=== PATIENT | female | born 1990 | race Hispanic/Latino ===

== ENCOUNTER 2018-08-04 09:29 | Emergency (ER) | payer BC, OTHER ==
[2018-08-04 09:37] VITALS: BMI 39.8
--- NOTE | 2018-08-04 10:12 | ED PDOC ---
History of Present Illness History of Present Illness: 27 y/o female with no PMHx presents to the ED complaining of flu-like symptoms since yesterday. Associated with generalized bodyaches, fever, chills, nausea, vomiting, and headaches. Patient also reports developing a dry cough today. Additionally, she complains of mild dysuria and low back pain. She denies any sore throat, ear pain, sputum production, SOB, wheezing, chest tightness, dizziness, or other complaints. Patient denies known sick contacts, but works as a respiratory therapist. States she received her flu shot last month. HPI: Influenza Time Seen by Provider: 08/04/18 09:42 Chief Complaint: Flu-like Symptoms Chief Complaint (Provider): Flu-like Symptoms, Dysuria History Per: Patient Exam Limitations: no limitations Onset/Duration Of Symptoms: Days (x2) Symptoms include: fever, headache, bodyaches, cough, vomiting Sick Contacts (Context): None Hx Influenza Vaccination: Yes Past Medical History Reviewed: Historical Data, Nursing Documentation, Vital Signs Vital Signs: Last Vital Signs Temp 101.1 F H 08/04/18 09:35 Pulse 104 H 08/04/18 09:35 Resp 20 08/04/18 09:35 BP 116/71 08/04/18 09:35 Pulse Ox 97 08/04/18 09:35 - Medical History PMH: No Chronic Diseases - Surgical History Surgical History: Back Surgery (due to scoliosis), Cholecystectomy, Tonsillec callie - Family History Family History: States: No Known Family Hx - Social History Alcohol: Social Drugs: Denies - Home Medications Home Medications: Ambulatory Orders Medication Instructions Recorded Acetaminophen/Oxycodone Hydr 1 tab PO Q6H PRN #14 tab 03/27/15 [Percocet 10/325 mg Tab] Naproxen [Naprosyn] 500 mg PO BID PRN #20 tablet 08/04/18 - Allergies Allergies/Adverse Reactions: Allergies Allergy/AdvReac Type Severity Reaction Status Date / Time Penicillins Allergy RASH Verified 08/04/18 10:00 Review of Systems ROS Statement: Except As Marked, All Systems Reviewed And Found Negative Constitutional: Positive for: Fever, Chills, Other (Bodyaches) ENT: Negative for: Ear Pain, Throat Pain Cardiovascular: Negative for: Chest Pain, Palpitations, Light Headedness Respiratory: Positive for: Cough. Negative for: Shortness of Breath, Sputum, Wheezing Gastrointestinal: Positive for: Nausea, Vomiting. Negative for: Diarrhea Genitourinary Female: Positive for: Dysuria. Negative for: Hematuria Musculoskeletal: Positive for: Back Pain Skin: Negative for: Rash Neurological: Positive for: Headache. Negative for: Weakness, Dizziness Physical Exam - Reviewed Nursing Documentation Reviewed: Yes Vital Signs Reviewed: Yes - Physical Exam Appears: Positive for: Non-toxic, No Acute Distress Head Exam: Positive for: ATRAUMATIC, NORMOCEPHALIC Skin: Positive for: Normal Color, Warm Eye Exam: Positive for: Normal appearance, EOMI, PERRL ENT: Positive for: Normal ENT Inspection, Pharynx Is (clear). Negative for: Pharyngeal Erythema, Tonsillar Exudate Neck: Positive for: Painless ROM, Supple (with no tenderness, no adenopathy) Cardiovascular/Chest: Positive for: Regular Rate, Rhythm. Negative for: Murmur Respiratory: Positive for: Normal Breath Sounds. Negative for: Rhonchi, Wheezing, Respiratory Distress Gastrointestinal/Abdominal: Positive for: Soft. Negative for: Tenderness, Distended Back: Negative for: L CVA Tenderness, R CVA Tenderness, Vertebral Tenderness Extremity: Positive for: Normal ROM. Negative for: Pedal Edema, Calf Tenderness Neurologic/Psych: Positive for: Alert, Oriented (x3) Medical Decision Making Medical Decision Making: Time: 10:14 Initial Impression: Flu-like symptoms, Viral syndrome, r/o UTI Initial Plan: --Urine preg --Urine dip --Flu swab Urine dip negative. ----- Scribe Attestation: Documented by Melvi Tidwell, acting as a scribe for Dr. Mary Cm MD. Provider Scribe Attestation: All medical record entries made by the Scribe were at my direction and personally dictated by me. I have reviewed the chart and agree that the record accurately reflects my personal performance of the history, physical exam, medical decision making, and the department course for this patient. I have also personally directed, reviewed, and agree with the discharge instructions and disposition. - Laboratory Results Urine POC: Negative Urine dip results: Negative for: Leukocyte Esterase, Blood - ECG O2 Sat by Pulse Oximetry: 97 Disposition - Clinical Impression Clinical Impression: Viral illness - Patient ED Disposition Is Patient to be Admitted: No Doctor Will See Patient In The: Office Counseled Patient/Family Regarding: Diagnosis, Need For Followup, Rx Given - Disposition Referrals: Claudia Angeles [Outside] Disposition: Routine/Home Disposition Time: 10:30 Condition: STABLE Prescriptions: Naproxen [Naprosyn] 500 mg PO BID PRN #20 tablet PRN Reason: Pain, Moderate (4-7) Instructions: Viral Syndrome (DC) Forms: [facility] ([place]), [facility] ED School/Work Excuse - POA Present On Arrival: None
[2018-08-04 11:04] VITALS: BP 128/76; PULSE 78; RESP 19; TEMP 97.6; O2SAT 98
== END 2018-08-04 11:05 | disposition home or self-care (01) ==
LOC: H.ER 09:29
DX: B34.9 Viral infection, unspecified (principal); Z88.0 Allergy status to penicillin